=== PATIENT | female | born 2005 | race Caucasian/White ===

== ENCOUNTER 2024-07-25 00:12 | Outpatient (CLI) | payer OTHER, SELFPAY | END 2024-07-25 00:13 | disposition home or self-care (01) | LOC: AMB 07-29 01:56 | PROVIDERS: Visit Provider Family Medicine | DX: F10.129 Alcohol abuse with intoxication, unspecified (principal) | CPT/HCPCS: A0425; A0429 ==

== ENCOUNTER 2024-07-25 00:41 | Emergency (ER) | payer OTHER, SELFPAY ==
--- NOTE | 2024-07-25 00:46 | ED_ITS ---
HPI - General Adult General Chief complaint: Alcohol/Intoxication Stated complaint: ETOH Time Seen by Provider: 07/25/24 00:46 History of Present Illness HPI narrative: CC: Acute Alcohol Intoxication pt. had 10 shots and an edible within 1 hour since 2300. passed out in chair at [employer] and friends couldn' t arouse her. they callled 911. no injury noted. pt. intoxicated and confused. maintaining airway. 18-year-old young woman presenting to the emergency department via EMS [facility] with concerns of not maintaining airway. Intermittently very floppy and unresponsive. Is known to have had 10 shots of alcohol and some edibles. Last drink was a little over 2 hours ago upon arrival. Was found ?unconscious? in a chair. She has been vomiting. Arrives satting 98% and GCS I would estimate between 12 and 13. Related Data Home Medications ?Medication ?Instructions ?Recorded ?Confirmed No Known Home Medications 07/25/24 07/25/24 Allergies Allergy/AdvReac Type Severity Reaction Status Date / Time No Known Drug Allergies Allergy Verified 07/25/24 01:11 CDT Review of Systems Status of ROS: Reports: unobtainable due to medical condition [facility] Medical History No significant past medical history Surgical History (Updated 07/25/24 @ 01:33 CDT by Juancho Hernandez RN) No significant past surgical history Social History Smoking Status: Never smoker Second hand tobacco smoke exposure: No How often do you have a drink containing alcohol: never AUDIT-C Alcohol total score: 0 Non-prescribed substance use: denies use Exam Narrative: Exam Narrative: Has vomitus on her shirt. Does open eyes spontaneously and responds to questions. Very floppy. Oxygenating 98%. Lungs appear to be clear. Heart is in elevated rate and regular rhythm. I do not see indication of trauma on her head or extremities or torso. Dentition intact. Pupils are dilated and equal. A little slow but reactive and accommodating. Abdomen is soft. She is moving all extremities. Const: Vital Signs, click to edit/add: Vital Signs - 24 hr 07/25/24 00:47 07/25/24 01:09 CDT 07/25/24 01:00 [employer] Temperature 98.2 F Pulse Rate 89 Pulse Rate [Right Pulse Oximeter] 80 Respiratory Rate 20 20 Blood Pressure 120/75 Blood Pressure [Ri ght Upper Arm] 122/78 Pulse Oximetry 99 99 98 Oxygen Delivery Me thod Room Air 07/25/24 01:51 [employer] 07/25/24 01:54 [employer] Temperature 98.2 F 98.2 F Pulse Rate Pulse Rate [Right Pulse Oximeter] 87 87 Respiratory Rate 20 20 Blood Pressure Blood Pressure [Ri ght Upper Arm] 118/74 118/74 Pulse Oximetry 98 Oxygen Delivery Me thod Room Air Documenting provider has reviewed patient's vital signs: yes Course Vital Signs Vital signs: Initial Vital Signs Pulse Oximetry 99 07/25/24 00:47 Vital Signs Pulse Oximetry 99 07/25/24 00:47 Temperature 98.2 F 07/25/24 01:54 [employer] Pulse Rate 87 07/25/24 01:54 [employer] Respiratory Rate 20 07/25/24 01:54 [employer] Blood Pressure 118/74 07/25/24 01:54 [employer] Pulse Oximetry 98 07/25/24 01:51 [employer] Oxygen Delivery Method Room Air 07/25/24 01:51 [employer] Medications Administered Medications: Discontinued Medications Generic Name Dose Route Start Last Admin Trade Name Freq PRN Reason Stop Dose Admin Sodium Chloride 500 mls @ 1,000 mls/hr 07/25/24 00:47 07/25/24 01:00 [employer] 0.9 % Sodium Chloride 500 Ml IV 07/25/24 01:16 [employer]IST Infused .Q30M ONE Infusion Sodium Chloride 500 mls @ 1,000 mls/hr 07/25/24 01:13 [employer]IST 07/25/24 01:14 E[employer]IST 0.9 % Sodium Chloride 500 Ml IV 07/25/24 01:42 E[employer] Infused .Q30M ONE Infusion Ondansetron HCl 4 mg 07/25/24 00:49 07/25/24 01:00 CDT Ondansetron 2 Mg/Ml Inj IVP 07/25/24 00:50 4 mg ONCE ONE Administration Medical Decision Making MDM Narrative Medical decision making narrative: Considering and she is oxygenating well and we can support her airway at this time, I would hold off on intubation considering initial concerns. Mother called inquiring and I discussed this case briefly as able with her. Father is on his way. Increasingly distressed and tearful over time in the emergency department that she does not remember events of the evening. Is my understanding is that she was with friends throughout the evening. Otherwise there was some concern that this was not normal. Per discussion we did attempt to obtain a urine tox but in itial collection missed and did not urinate subsequently. Alcohol level was 0.22 to and potassium was 3.1. Increasingly alert over time in the emergency department and ambulating through the emergency department supported by her father. Lab Data Lab results reviewed: Yes I reviewed the patient's lab results Labs: Lab Results 07/25/24 Range/Units 00:55 Hgb 13.6 (12.0-16.0) gm/dL Sodium 136 (135-149) mmol/L Potassium 3.1 L (3.6-5.1) mmol/L Chloride 104 (96-114) mmol/L Carbon Dioxide 16 L (20-32) mmol/L Anion Gap 16 H (7-15) mEq/L BUN 11 (5-24) mg/dL Creatinine 0.7 (0.6-1.2) mg/dL Estimated Creat Clear 111.62 Estimated GFR 128 ml/min Glucose 165 H (60-115) mg/dL Calcium 8.9 (8.7-10.8) mg/dL Salicylates < 1.0 L (1.0-10) mg/dL Acetaminophen < 10.0 L (10.0-30.0) ug/mL Ethyl Alcohol 0.22 H (0.01-0.03) % Discharge Plan Discharge Clinical Impression: Alcohol intoxication Additional Instructions: A well-hydrated but not with alcohol. If you choose to drink, please be more careful. Prescriptions: No Action No Known Home Medications Follow Up/Referrals: Provider,Not a Local [Primary Care Provider] - Stand Alone Forms: Link Trigger Info Instructions
[2024-07-25 00:47] VITALS: O2SAT 99
[2024-07-25 01:00] VITALS: BP 120/75; PULSE 89; RESP 20; O2SAT 98
[2024-07-25] MEDS: ONDANSETRON 2 MG/ML inj 4 MG IVP (01:00)
[2024-07-25] MEDS: 0.9 % SODIUM CHLORIDE 500 ML 500 ML 1000 ML IV ×2 (01:00)
[2024-07-25 01:05] LABS: Hemoglobin* 13.6 gm/dL (12.0-16.0)
[2024-07-25 01:09] VITALS: BP 122/78; PULSE 80; RESP 20; TEMP 36.8; O2SAT 99; BMI 25.7
[2024-07-25 01:28] LABS: Chloride* 104 mmol/L (96-114); Sodium* 136 mmol/L (135-149)
[2024-07-25 01:29] LABS: Potassium* 3.1 mmol/L (3.6-5.1)
[2024-07-25 01:31] LABS: Anion Gap 16 mEq/L (7-15); Carbon Dioxide* 16 mmol/L (20-32); Creatinine* 0.7 mg/dL (0.6-1.2); Est. Creatinine Clearance* 111.62; Estimated Glomerular Filt Rate 128 ml/min
[2024-07-25 01:32] LABS: Blood Urea Nitrogen* 11 mg/dL (5-24); Calcium* 8.9 mg/dL (8.7-10.8); Ethanol* 0.22 % (0.01-0.03); Glucose* 165 mg/dL (60-115)
[2024-07-25 01:34] LABS: Acetaminophen* < 10.0 ug/mL (10.0-30.0); Salicylate* < 1.0 mg/dL (1.0-10)
[2024-07-25 01:51] VITALS: BP 118/74; PULSE 87; RESP 20; TEMP 36.8; O2SAT 98
[2024-07-25 01:54] VITALS: BP 118/74; PULSE 87; RESP 20; TEMP 36.8
--- NOTE | 2024-07-26 14:40 | PC.NURSE ---
07/26/2024 1430. Mixing Plant Dumper reached out to patient for verbal consent to speak to mother about recent ED visit. Patient called back and gave leader writer permission to discuss healthcare information with her mother Kaye Blank.
== END 2024-07-25 01:54 | disposition home or self-care (01) ==
PROVIDERS: Emergency Provider Family Medicine
DX: F10.129 Alcohol abuse with intoxication, unspecified (principal)
CPT/HCPCS: 36415; 80048; 80143; 80179; 80306; 82077; 85018; 94761; 96374; 99284; J2405; J7030